=== PATIENT | male | born 1995 ===

== ENCOUNTER 2020-02-12 00:33 | Emergency (ER) | payer OTHER, SELFPAY ==
[2020-02-12] MEDS: LORazepam 2 MG/ML INJ IM (00:56)
[2020-02-12] MEDS: HALOPERIDOL 5 MG/ML VIAL IM (00:56)
[2020-02-12] MEDS: diphenhydrAMINE 50 MG/ML VIAL IM (00:56)
[2020-02-12 01:23] VITALS: BP 113/73; PULSE 79; RESP 18; O2SAT 97
--- NOTE | 2020-02-12 01:26 | PC.NURSE ---
Dr An gave the patient's necklace to his mother in the waiting room.
--- NOTE | 2020-02-12 01:30 | ED_ITS ---
HPI - Psych <Linda An DO - Last Filed: 02/15/20 07:15> General Chief Complaint: Psychiatric Symptoms Stated Complaint: brought in by law enforcement Time Seen by Provider: 02/12/20 00:36 Source: family, police and other Mode of arrival: Ambulatory History of Present Illness HPI Narrative: Patient is a 24-year-old male who presents by police for altered mental status. He is talking quite fast not making any sense not answering any questions. I have spoken with mom and dad he state this is happened at least 3 times the most recent was about 3 weeks ago. He went to [place] went to a republican, did not sleep, smoked some marijuana he was put in the hospital, then later released. He got COVID from the republican he has since had negative COVID test. Mom and dad state he was doing well in till he went to [place]. He was at [facility] for something similar as well. Every time he has had lack of sleep and marijuana. Tonight they did find some homemade at doubles in his room. They are trying to get him some help. [facility] [place].. complaint: altered mental status Related Data Allergies Allergy/AdvReac Type Severity Reaction Status Date / Time zolpidem [From Ambien] AdvReac Verified 02/12/20 02:13 Review of Systems <DO Deepika Ceballos Last Filed: 02/15/20 07:15> Review of Systems ROS Unobtainable: Unobtainable due to mental condition Patient History <Linda An DO - Last Filed: 02/15/20 07:15> Medical History Patient denies significant medical history alcohol intake frequency: 0-2 drinks per day Substance Use Type: marijuana Exam <Linda An DO - Last Filed: 02/15/20 07:15> Initial Vital Signs Initial Vital Signs: Vital Signs Pulse Rate 79 02/12/20 01:23 Respiratory Rate 18 02/12/20 01:23 Blood Pressure 113/73 02/12/20 01:23 Pulse Oximetry 97 02/12/20 01:23 Gen.: Thin young male agitated ambulatory HEENT: Head is atraumatic EOMI, lips are dry Neck: Supple no JVD Lungs: Speaking clearly, no sign of respiratory distress Cardiac: Peripheral pulses intact no cyanosis Extremities: No bony deformities Neurologic: Alert, speaking quite fast Psych Appearance: well kempt Speech and Movement: agitated, pressured speech and restless Mood: manic mood and paranoid Affect: anxious affect, hostile and irritable affect Attitude: belligerent Thought Process: flight of ideas and illogical Judgment: poor <Sanchez Johnson DO - Last Filed: 02/12/20 18:05> Initial Vital Signs Initial Vital Signs: Vital Signs Pulse Rate 79 02/12/20 01:23 Respiratory Rate 18 02/12/20 01:23 Blood Pressure 113/73 02/12/20 01:23 Pulse Oximetry 97 02/12/20 01:23 Course <Linda An DO - Last Filed: 02/15/20 07:15> Orders Ordered: Discontinued Medications Diphenhydramine HCl (Diphenhydramine 50 Mg/Ml Vial) 50 mg IM NOW ONE Stop: 02/12/20 00:37 Last Admin: 02/12/20 00:56 Dose: 50 mg Documented by: KAIMLLA Haloperidol (Haloperidol 5 Mg/Ml Vial) 5 mg IM NOW ONE Stop: 02/12/20 00:37 Last Admin: 02/12/20 00:56 Dose: 5 mg Documented by: KAMILLA Lorazepam (Lorazepam 2 Mg/Ml Inj) 2 mg IM NOW ONE Stop: 02/12/20 00:37 Last Admin: 02/12/20 00:56 Dose: 2 mg Documented by: KAMILLA Lorazepam (Lorazepam 0.5 Mg Tablet) 1 mg PO NOW ONE Stop: 02/12/20 07:33 Last Admin: 02/12/20 07:54 Dose: 1 mg Documented by: MARCELO Lorazepam (Lorazepam 0.5 Mg Tablet) 1 mg PO NOW ONE Stop: 02/12/20 16:20 Last Admin: 02/12/20 16:25 Dose: 0.5 mg Documented by: MOISES Vital Signs Vital signs: Vital Signs - 8 hr 02/12/20 12:30 Pulse Rate 102 H Blood Pressure 132/84 Pulse Oximetry 99 <DO Deepika Watkins Last Filed: 02/12/20 18:05> Orders Ordered: Discontinued Medications Diphenhydramine HCl (Diphenhydramine 50 Mg/Ml Vial) 50 mg IM NOW ONE Stop: 02/12/20 00:37 Last Admin: 02/12/20 00:56 Dose: 50 mg Documented by: KAMILLA Haloperidol (Haloperidol 5 Mg/Ml Vial) 5 mg IM NOW ONE Stop: 02/12/20 00:37 Last Admin: 02/12/20 00:56 Dose: 5 mg Documented by: KAMILLA Lorazepam (Lorazepam 2 Mg/Ml Inj) 2 mg IM NOW ONE Stop: 02/12/20 00:37 Last Admin: 02/12/20 00:56 Dose: 2 mg Documented by: KAMILLA Lorazepam (Lorazepam 0.5 Mg Tablet) 1 mg PO NOW ONE Stop: 02/12/20 07:33 Last Admin: 02/12/20 07:54 Dose: 1 mg Documented by: MARCELO Lorazepam (Lorazepam 0.5 Mg Tablet) 1 mg PO NOW ONE Stop: 02/12/20 16:20 Last Admin: 02/12/20 16:25 Dose: 0.5 mg Documented by: MOISES Vital Signs Vital signs: Vital Signs - 8 hr 02/12/20 12:30 Pulse Rate 102 H Blood Pressure 132/84 Pulse Oximetry 99 MDM - Psych <Linda An, - Last Filed: 02/15/20 07:15> Lab Data Result diagrams: 02/12/20 01:23 02/12/20 01:23 Labs: Lab Results 02/12/20 02/12/20 02/12/20 Range/Units 01:23 01:23 01:23 WBC 5.2 (4.5-11.0) X10^3/uL RBC 4.29 L (4.5-5.9) X10^6/uL Hgb 13.1 L (13.5-17.5) g/dL Hct 38.4 L (41-53) % MCV 89.4 (80-100) fL MCH 30.6 (26-34) PG MCHC 34.2 (30-36) % RDW 12.9 (11.6-14.8) % Plt Count 256 (150-400) X10^3/uL Neut % (Auto) 57.9 (50-75) % Lymph % (Auto) 32.5 (25-40) % [place] % (Auto) 6.3 (3-14) % Eos % (Auto) 2.2 (2-4) % Baso % (Auto) 1.1 (0-2) % Neut # (Auto) 3000 (9983-1296) /uL Lymph # (Auto) 1700 (2471-0559) /uL [place] # (Auto) 300 (0-900) /uL Eos # (Auto) 100 (0-450) /uL Baso # (Auto) 100 (0-100) /uL Sodium 139 (137-145) mmol/L Potassium 3.4 (3.4-5.1) mmol/L Chloride 107 (98-107) mmol/L Carbon Dioxide 26 (22-32) mmol/L BUN 20 (9-20) mg/dL Creatinine 0.75 (0.66-1.25) mg/dL Estimated GFR > 60.0 (>60) mL/min BUN/Creatinine Ratio 26.7 H (6-22) Glucose 103 H (70-100) mg/dL Calcium 9.0 (8.4-10.2) mg/dL Total Bilirubin 0.5 (0.2-1.3) mg/dL AST 63 H (17-59) IU/L ALT 61 H (<50) IU/L Alkaline Phosphatase 53 (38-126) U/L Total Protein 7.2 (6.3-8.2) g/dL Albumin 4.2 (3.5-5.0) g/dL Globulin 3.0 (1.7-4.1) g/dL Albumin/Globulin Ratio 1.4 (1.0-2.8) TSH 1.03 (0.47-4.68) uIU/mL Urine Color Urine Appearance Urine pH (4.5-8.0) Ur Specific [place] (1.000-1.035) Urine Protein (Negative) Urine Glucose (UA) (Negative) g/dL Urine Ketones (NEGATIVE) Urine Occult Blood (Negative) Urine Nitrate (Negative) Urine Bilirubin (NEGATIVE) Urine Urobilinogen (0.2) E.U./dL Ur Leukocyte Esterase (NEGATIVE) Urine RBC (0-5/HPF) Urine WBC (0-5/HPF) Urine Bacteria (None) Ur Culture Indicated? Micro UA Comment U Opiates 300ng/mL cut (Negative) Ur Oxycodone Screen (Negative) Urine Methadone Screen (Negative) Ur Barbiturates Screen (Negative) U Tricyclic Antidepress (Negative) Ur Phencyclidine Scrn (Negative) Ur Amphetamines Screen (Negative) U Methamphetamines Scrn (Negative) Ur MDMA Scrn (Ecstasy) (Negative) U Benzodiazepines Scrn (Negative) Urine Cocaine Screen (Negative) U Marijuana (THC) Screen (Negative) Ethyl Alcohol < 10 ( - 10) mg/dL COVID-19 PCR (Negative) 02/12/20 02/12/20 02/12/20 Range/Units 02:10 07:41 07:41 WBC (4.5-11.0) X10^3/uL RBC (4.5-5.9) X10^6/uL Hgb (13.5-17.5) g/dL Hct (41-53) % MCV (80-100) fL MCH (26-34) PG MCHC (30-36) % RDW (11.6-14.8) % Plt Count (150-400) X10^3/uL Neut % (Auto) (50-75) % Lymph % (Auto) (25-40) % [place] % (Auto) (3-14) % Eos % (Auto) (2-4) % Baso % (Auto) (0-2) % Neut # (Auto) (7185-2782) /uL Lymph # (Auto) (8697-7827) /uL [place] # (Auto) (0-900) /uL Eos # (Auto) (0-450) /uL Baso # (Auto) (0-100) /uL Sodium (137-145) mmol/L Potassium (3.4-5.1) mmol/L Chloride (98-107) mmol/L Carbon Dioxide (22-32) mmol/L BUN (9-20) mg/dL Creatinine (0.66-1.25) mg/dL Estimated GFR (>60) mL/min BUN/Creatinine Ratio (6-22) Glucose (70-100) mg/dL Calcium (8.4-10.2) mg/dL Total Bilirubin (0.2-1.3) mg/dL AST (17-59) IU/L ALT (<50) IU/L Alkaline Phosphatase (38-126) U/L Total Protein (6.3-8.2) g/dL Albumin (3.5-5.0) g/dL Globulin (1.7-4.1) g/dL Albumin/Globulin Ratio (1.0-2.8) TSH (0.47-4.68) uIU/mL Urine Color Yellow Urine Appearance Clear Urine pH 5.5 (4.5-8.0) Ur Specific [place] 1.025 (1.000-1.035) Urine Protein Negative (Negative) Urine Glucose (UA) Negative (Negative) g/dL Urine Ketones Negative (NEGATIVE) Urine Occult Blood Negative (Negative) Urine Nitrate Negative (Negative) Urine Bilirubin Negative (NEGATIVE) Urine Urobilinogen 0.2 (0.2) E.U./dL Ur Leukocyte Esterase Negative (NEGATIVE) Urine RBC None seen (0-5/HPF) Urine WBC None seen (0-5/HPF) Urine Bacteria None seen (None) Ur Culture Indicated? Cult not indicated Micro UA Comment Microscopic normal U Opiates 300ng/mL cut Negative (Negative) Ur Oxycodone Screen Negative (Negative) Urine Methadone Screen Negative (Negative) Ur Barbiturates Screen Negative (Negative) U Tricyclic Antidepress Negative (Negative) Ur Phencyclidine Scrn Negative (Negative) Ur Amphetamines Screen Negative (Negative) U Methamphetamines Scrn Negative (Negative) Ur MDMA Scrn (Ecstasy) Negative (Negative) U Benzodiazepines Scrn Negative (Negative) Urine Cocaine Screen Negative (Negative) U Marijuana (THC) Screen Positive H (Negative) Ethyl Alcohol ( - 10) mg/dL COVID-19 PCR Negative (Negative) Point of Care Testing Glucose POC 103 <Sanchez Johnson, DO - Last Filed: 02/12/20 18:05> Lab Data Attestation: I reviewed the patient's lab results. Labs: Lab Results 02/12/20 02/12/20 02/12/20 Range/Units 01:23 01:23 01:23 WBC 5.2 (4.5-11.0) X10^3/uL RBC 4.29 L (4.5-5.9) X10^6/uL Hgb 13.1 L (13.5-17.5) g/dL Hct 38.4 L (41-53) % MCV 89.4 (80-100) fL MCH 30.6 (26-34) PG MCHC 34.2 (30-36) % RDW 12.9 (11.6-14.8) % Plt Count 256 (150-400) X10^3/uL Neut % (Auto) 57.9 (50-75) % Lymph % (Auto) 32.5 (25-40) % [place] % (Auto) 6.3 (3-14) % Eos % (Auto) 2.2 (2-4) % Baso % (Auto) 1.1 (0-2) % Neut # (Auto) 3000 (8897-9147) /uL Lymph # (Auto) 1700 (2668-2517) /uL [place] # (Auto) 300 (0-900) /uL Eos # (Auto) 100 (0-450) /uL Baso # (Auto) 100 (0-100) /uL Sodium 139 (137-145) mmol/L Potassium 3.4 (3.4-5.1) mmol/L Chloride 107 (98-107) mmol/L Carbon Dioxide 26 (22-32) mmol/L BUN 20 (9-20) mg/dL Creatinine 0.75 (0.66-1.25) mg/dL Estimated GFR > 60.0 (>60) mL/min BUN/Creatinine Ratio 26.7 H (6-22) Glucose 103 H (70-100) mg/dL Calcium 9.0 (8.4-10.2) mg/dL Total Bilirubin 0.5 (0.2-1.3) mg/dL AST 63 H (17-59) IU/L ALT 61 H (<50) IU/L Alkaline Phosphatase 53 (38-126) U/L Total Protein 7.2 (6.3-8.2) g/dL Albumin 4.2 (3.5-5.0) g/dL Globulin 3.0 (1.7-4.1) g/dL Albumin/Globulin Ratio 1.4 (1.0-2.8) TSH 1.03 (0.47-4.68) uIU/mL Urine Color Urine Appearance Urine pH (4.5-8.0) Ur Specific [place] (1.000-1.035) Urine Protein (Negative) Urine Glucose (UA) (Negative) g/dL Urine Ketones (NEGATIVE) Urine Occult Blood (Negative) Urine Nitrate (Negative) Urine Bilirubin (NEGATIVE) Urine Urobilinogen (0.2) E.U./dL Ur Leukocyte Esterase (NEGATIVE) Urine RBC (0-5/HPF) Urine WBC (0-5/HPF) Urine Bacteria (None) Ur Culture Indicated? Micro UA Comment U Opiates 300ng/mL cut (Negative) Ur Oxycodone Screen (Negative) Urine Methadone Screen (Negative) Ur Barbiturates Screen (Negative) U Tricyclic Antidepress (Negative) Ur Phencyclidine Scrn (Negative) Ur Amphetamines Screen (Negative) U Methamphetamines Scrn (Negative) Ur MDMA Scrn (Ecstasy) (Negative) U Benzodiazepines Scrn (Negative) Urine Cocaine Screen (Negative) U Marijuana (THC) Screen (Negative) Ethyl Alcohol < 10 ( - 10) mg/dL COVID-19 PCR (Negative) 02/12/20 02/12/20 02/12/20 Range/Units 02:10 07:41 07:41 WBC (4.5-11.0) X10^3/uL RBC (4.5-5.9) X10^6/uL Hgb (13.5-17.5) g/dL Hct (41-53) % MCV (80-100) fL MCH (26-34) PG MCHC (30-36) % RDW (11.6-14.8) % Plt Count (150-400) X10^3/uL Neut % (Auto) (50-75) % Lymph % (Auto) (25-40) % [place] % (Auto) (3-14) % Eos % (Auto) (2-4) % Baso % (Auto) (0-2) % Neut # (Auto) (7650-5513) /uL Lymph # (Auto) (3430-9583) /uL [place] # (Auto) (0-900) /uL Eos # (Auto) (0-450) /uL Baso # (Auto) (0-100) /uL Sodium (137-145) mmol/L Potassium (3.4-5.1) mmol/L Chloride (98-107) mmol/L Carbon Dioxide (22-32) mmol/L BUN (9-20) mg/dL Creatinine (0.66-1.25) mg/dL Estimated GFR (>60) mL/min BUN/Creatinine Ratio (6-22) Glucose (70-100) mg/dL Calcium (8.4-10.2) mg/dL Total Bilirubin (0.2-1.3) mg/dL AST (17-59) IU/L ALT (<50) IU/L Alkaline Phosphatase (38-126) U/L Total Protein (6.3-8.2) g/dL Albumin (3.5-5.0) g/dL Globulin (1.7-4.1) g/dL Albumin/Globulin Ratio (1.0-2.8) TSH (0.47-4.68) uIU/mL Urine Color Yellow Urine Appearance Clear Urine pH 5.5 (4.5-8.0) Ur Specific [place] 1.025 (1.000-1.035) Urine Protein Negative (Negative) Urine Glucose (UA) Negative (Negative) g/dL Urine Ketones Negative (NEGATIVE) Urine Occult Blood Negative (Negative) Urine Nitrate Negative (Negative) Urine Bilirubin Negative (NEGATIVE) Urine Urobilinogen 0.2 (0.2) E.U./dL Ur Leukocyte Esterase Negative (NEGATIVE) Urine RBC None seen (0-5/HPF) Urine WBC None seen (0-5/HPF) Urine Bacteria None seen (None) Ur Culture Indicated? Cult not indicated Micro UA Comment Microscopic normal U Opiates 300ng/mL cut Negative (Negative) Ur Oxycodone Screen Negative (Negative) Urine Methadone Screen Negative (Negative) Ur Barbiturates Screen Negative (Negative) U Tricyclic Antidepress Negative (Negative) Ur Phencyclidine Scrn Negative (Negative) Ur Amphetamines Screen Negative (Negative) U Methamphetamines Scrn Negative (Negative) Ur MDMA Scrn (Ecstasy) Negative (Negative) U Benzodiazepines Scrn Negative (Negative) Urine Cocaine Screen Negative (Negative) U Marijuana (THC) Screen Positive H (Negative) Ethyl Alcohol ( - 10) mg/dL COVID-19 PCR Negative (Negative) Point of Care Testing Glucose POC 103 MDM Narrative Medical decision making narrative: Dr johnson: Received turned over from night provider. Reviewed patient's history and physical. Patient has been calm throughout most of the day however has had episodes where he becomes agitated however oral Ativan seems to improve his symptoms. He was evaluated by social Work. He was voluntary for admission to psychiatric facility. The receiving facility in provider was set up through social work. Will transport patient. He is stable for transport. Restraint Jcvg-zh-Rveq <Linda An, DO - Last Filed: 02/15/20 07:15> Restraint Wqxu-tb-Bhdi Evaluation Bnsz-ar-Sshj #1: Date: 02/12/20 Patient Appearance: Unkempt Level of Consciousness: Alert, Combative, Inappropriate and Restless Speech Pattern: Excessive, Rambling and Word Salad Mood Description: Anxious and Hostile Ability to Follow Directions: Poor Thought Process: Flight of ideas Respirations: Normal respiratory rate Circulation: Moves all extremities, peripheral pulses palpable and Skin warm and dry Behavior necessitating restraint: Escalating verbal abuse Restraint risks explained to patient: Yes Restraint risks explained to family: Yes (mom and dad in waiting room, I went out and explained the situation) Reaction to Intervention: Restless, Indicating Needs Restraint Needs: Continue Restraints Snbj-gw-Maqs #2: Date: 02/12/20 Time: 01:44 Patient Appearance: Unkempt Level of Consciousness: Alert and Appropriate Restraint Needs: Discontinue Restraints (Discontinue 2 restraints) Vtov-ck-Fzql #3: Date: 02/12/20 Time: 02:00 Patient Appearance: Unkempt Level of Consciousness: Drowsy Restraint Needs: Discontinue Restraints Discharge Plan Departure Patient Disposition: Xfer Psychiatric Hosp Clinical Impression: Acute psychosis
[2020-02-12 01:42] LABS: Add Manual Diff / Slide Review NO; Basophils Absolute Auto 100 /uL (0-100); Basophils Percent Auto 1.1 % (0-2); Eosinophils Absolute Auto 100 /uL (0-450); Eosinophils Percent Auto 2.2 % (2-4); Hematocrit 38.4 % (41-53); Hemoglobin 13.1 g/dL (13.5-17.5); Lymphocytes Absolute Auto 1700 /uL (1100-4500); Lymphocytes Percent Auto 32.5 % (25-40); Mean Corpuscular HGB Conc 34.2 % (30-36); Mean Corpuscular Hemoglobin 30.6 PG (26-34); Mean Corpuscular Volume 89.4 fL (80-100); Monocytes Absolute Auto 300 /uL (0-900); Monocytes Percent Auto 6.3 % (3-14); Neutrophils Absolute Auto 3000 /uL (1500-7000); Neutrophils Percent Auto 57.9 % (50-75); Platelet Count 256 X10^3/uL (150-400); Red Blood Cell Count 4.29 X10^6/uL (4.5-5.9); Red Cell Distribution Width 12.9 % (11.6-14.8); White Blood Cell Count 5.2 X10^3/uL (4.5-11.0)
[2020-02-12 01:49] LABS: Alanine Aminotransferase 61 IU/L (<50); Albumin 4.2 g/dL (3.5-5.0); Albumin Globulin Ratio 1.4 (1.0-2.8); Alkaline Phosphatase 53 U/L (38-126); Aspartate Aminotransferase 63 IU/L (17-59); BUN Creatinine Ratio 26.7 (6-22); Bilirubin Total 0.5 mg/dL (0.2-1.3); Blood Urea Nitrogen 20 mg/dL (9-20); Carbon Dioxide 26 mmol/L (22-32); Chloride 107 mmol/L (98-107); Estimated Glomerular Filt Rate > 60.0 mL/min (>60); Ethanol (ETOH) < 10 mg/dL; Glucose 103 mg/dL (70-100); HEMOLYSIS < 15 (0-50); Potassium 3.4 mmol/L (3.4-5.1); Sodium 139 mmol/L (137-145); Total Protein 7.2 g/dL (6.3-8.2)
[2020-02-12 02:26] LABS: Thyroid Stimulating Hormone 1.03 uIU/mL (0.47-4.68)
--- NOTE | 2020-02-12 02:27 | PC.NURSE ---
Armaan, Father [phone]
[2020-02-12 02:35] LABS: COVID19 -Nasal RAPID Negative (Negative)
[2020-02-12 06:06] VITALS: BP 118/82; PULSE 57; RESP 18
--- NOTE | 2020-02-12 07:46 | PC.NURSE ---
Pt standing in room yelling at father stating How about you be a father for once in your god d*mn life, do you want me to go to f*cking hell?
[2020-02-12] MEDS: LORazepam 0.5 MG TABLET 1 MG PO ×2 (07:54→16:25)
[2020-02-12 07:59] LABS: Bacteria Urine None Seen; RBC Urine None Seen (0-5/HPF); WBC Urine None Seen (0-5/HPF)
[2020-02-12 08:02] LABS: Appearance Urine UA CLEAR; Bilirubin Urine UA NEGATIVE (NEGATIVE); Color Urine UA YELLOW; Glucose Urine UA NEGATIVE (Negative); Ketones Urine UA NEGATIVE (NEGATIVE); Leukocyte Esterase Urine UA NEGATIVE (NEGATIVE); Nitrite Urine UA NEGATIVE (Negative); Occult Blood Urine UA NEGATIVE (Negative); Protein Urine UA NEGATIVE (Negative); Specific Gravity Urine UA 1.025 (1.000-1.035); Urobilinogen Urine UA 0.2 E.U./dL (0.2); pH Urine UA 5.5 (4.5-8.0)
--- NOTE | 2020-02-12 08:03 | PC.NURSE ---
pt up walking in room and talking with dad.
--- NOTE | 2020-02-12 08:04 | PC.NURSE ---
pt spit out ativan, pt then asked for more, pt dad picked up the tabs. and through them away. i did get the pt more medication and he did take them. pt is saying if anyone tries to take my stuff again, I'll throw hands pt ripped off dads mask, walked up on dad and put his chest on his chest saying what are you going to do then says you don't love me, you're giving up on me like mom
[2020-02-12 08:08] LABS: Culture Indicated Urine Cult Not Indicated; UR Morphine/Opiate cutoff 300 Negative (Negative); Ur Creatinine Normal (Normal); Ur Specific Gravity Normal (Normal); Urine Amphetamines Negative (Negative); Urine Barbiturates Negative (Negative); Urine Benzodiazepines Negative (Negative); Urine Cocaine Negative (Negative); Urine Comments Microscopic Normal; Urine MDMA Negative (Negative); Urine Methadone Negative (Negative); Urine Methamphetamines Negative (Negative); Urine Oxycodone Negative (Negative); Urine Phencyclidine Negative (Negative); Urine Tetrahydrocannabinol Positive (Negative); Urine Tricyclic Antidepressant Negative (Negative); Urine pH Normal (Normal)
--- NOTE | 2020-02-12 10:29 | PC.NURSE ---
dad found a broken tablet, unsure if its from the first failed dose of ativan or the second dose provided.
--- NOTE | 2020-02-12 12:07 | PC.NURSE ---
late entry 1045, pt asked about dad, i explained he was still in the waiting room, pt started to walk out of the ed, i stepped in front of him and asked him to return to his room, i explained i will step out and check on dad. pt then stepped back and slapped his chest and mumble at me. i said go back to your room. he did, the teri Conti stayed with him. dad did come back in.
--- NOTE | 2020-02-12 12:20 | PC.NURSE ---
IP PARALEGAL: Pt is in the room sitting on the bed. His mother and James MANAGER WELLNESS are in the room.
[2020-02-12 12:30] VITALS: BP 132/84; PULSE 102; O2SAT 99
--- NOTE | 2020-02-12 13:29 | CM.SWNOTE ---
PRODUCT/INDUSTRY CONSULTANT Assessment PRODUCT/INDUSTRY CONSULTANT - Internet Network Specialist Assessment PRODUCT/INDUSTRY CONSULTANT - Internet Network Specialist Assessment Start: 02/12/20 13:06 Freq: Status: Active Protocol: Document 02/12/20 13:06 JOEL (Rec: 02/12/20 13:29 JOEL [id number]) PRODUCT/INDUSTRY CONSULTANT/Internet Network Specialist Assessment Time Spent with Patient Start date 02/12/20 Visit Start Time 12:10 End date 02/12/20 Visit End Time 13:00 Total time Care Management spent on 50 patient visit-in minutes Mental Health Screening Include Onset, Duration, Intensity Presenting Problem Patient presents to ED via law enforcement previous evening following an episode in which he became angry and escalated towards his parents. Per report from patient and mother, patient has been experiencing day nightmares in which he see's demons and things I've never seen before, increased agitation, and paranoia. Precipitating Event(s) Patient had argument with parents prior to coming to ED previous evening. Patient Strengths Patient cares about those around him, and explains he is trying to not shut down while having the conversation about what brought him to ED. Current Behavioral Health Provider(s) None. Include Facility, Provider, Ph. # Psych. Hx Mental Health and Chemical Patient has experienced Dependency similar episodes in the past, but declines to provide formal diagnosis. Patient reports substantial marijuana use while living in [place] in late 2018. I was living by myself and smoking every day patient states, and continues to explain he was hospitalized in early 2019 due to this. Family Hx of Behavioral Abuse None reported. Psychiatric Hospitalizations (date(s)/ Patient was hospitalized in [place] location) /5150 (involuntarily) in early 2019. Patient was hospitalized in early January. Patient went to another ED on 02/08, and patient and family declined hospitalization at that time. Psychosocial information & Support Patient is a 24 y/o male who Systems recently moved from [place] to [facility] and is living with his parents. 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 Patient reports he has a girlfriend and reports positive relationships with parents, though he does explains some tension with his father. School/Work Patient currently works for his parents. Legal Concerns Legal Matters - Outstanding Issues None Mental Status Orientation (Person/Place/Time) Oriented x3 Stated Mood ok Affect (Congruent with Mood?) slightly agitated, labile, congruent with mood. Thought Content - Specify/Describe Patient discloses experiencing Obsessions, Delusions, Hallucinations visual hallucinations and does describe paranoia and grandiose thinking during assessment. Thought Processes (Scmckic-Vcqvjouj-Ivrn Mostly coherent. Some Hectmahc-Ufkemtrn-Vruoflteim- disorganized thinking and Kqufktqszmcwcv-Ewspmlg-Ajmzdsrbetwr- thought blocking observed Thought Blocking) during assessment. Speech (Lsvtny-Giko-Mkwahvy-Rapid-Soft- Pressured. Loud-Pressured) Motor (Dizosc-Rwhppaoom-Zyfi-Other) Excessive. Patient did change positions on bed often during assessment and at one point was pacing the room and standing behind his mother and PRODUCT/INDUSTRY CONSULTANT during conversation. Insight (Tmrd-Rldd-Aabg/Limited) Fair/Limited. Judgement (Ppte-Tsvr-Jiam/Limited) Poor/Limited. Impulse Control (Adequate-Impaired) Impaired Memory (Xzsdxcuwu-Iungzy-Jvzajz, Intact for interview, not Impaired-Intact) formally assessed. Concentration (Intact-Impaired) Slight impairment. Attention (Intact-Impaired) Slight impairment. Behavior (Appropriate-Inappropriate) Appropriate. Risk Assessment Suicidal Ideation (Plan) No Homicidal Ideation (Plan) No Comment Patient denies SI/HI. Intervention Intervention PRODUCT/INDUSTRY CONSULTANT meets with patient. Patient's mother is in room and patient provides consent for mother to be present during assessment. Patient reports a experiencing and an episode of anger previous evening with resulted in this ED visit. Patient reports that he feels as though someone else takes over when he gets angry, and he does not always agree with the actions of this person. Patient's mother reports that family attempted and was unable to de-escalate patient, resulting in call to 911. Patient's mother reports that patient was responding to internal stimuli, pacing, taking his shirt on and off every few seconds during this episode. Patient demonstrates grandiose thinking, pressured speech, and labile mood/affect throughout assessment. Patient becomes agitated while communicating with father. Patient expresses awareness that his mental health is point of conflict for his family and states that his hallucinations are terrifying to him. Patient and family explain that patient had been doing well and had no significant mental health disturbances between March 2019 and December 2019. Patient returned to [place] for a brief time in early December,, and family reports that patient has had several episodes of mental health disturbances since returning. PRODUCT/INDUSTRY CONSULTANT and family discuss next steps. PRODUCT/INDUSTRY CONSULTANT brings up inpatient treatment. PRODUCT/INDUSTRY CONSULTANT, patient, and family discuss this, and patient states That sounds good, I want to go. PRODUCT/INDUSTRY CONSULTANT explains process and patient and family agreeable. PRODUCT/INDUSTRY CONSULTANT updates Dr. Johnson, who indicates agreement with plan to find voluntary inpatient treatment. Plan RA Plan PRODUCT/INDUSTRY CONSULTANT will seek voluntary inpatient bed for patient. CHADD Murphy
--- NOTE | 2020-02-12 16:25 | PC.NURSE ---
patient did not want to take one of his 0.5mg tablets of ativan. provider notified and no new orders at this time.
--- NOTE | 2020-02-12 16:45 | PC.NURSE ---
BLOW MACHINE TENDER STARCH SPRAYING: pt in bed. Mom is in room. Pt. has been having occasional agitated outbursts of yelling. 1:[address]
--- NOTE | 2020-02-12 16:49 | CM.SWNOTE ---
PSYCHIATRIC NURSE note Following assessment, PSYCHIATRIC NURSE calls [facility] seeking placement. PSYCHIATRIC NURSE is informed by [facility] staff that they do have open beds and [facility] Staff requests clinicals. PSYCHIATRIC NURSE faxes clinicals to [facility] at 1353. PSYCHIATRIC NURSE calls [facility] at 1500 seeking update. PSYCHIATRIC NURSE is informed that they will call back shortly. PSYCHIATRIC NURSE calls back at 1600 and speaks to Jessenia who informs PSYCHIATRIC NURSE that patient has been accepted. Details of acceptance listed below: Accepted to [facility] 2W. Accepting provider SANTANA Chou. [id number] [phone]. Check in 1999. Intake contact: Jessenia. PSYCHIATRIC NURSE informs Dr. Johnson, PAUL Rodgers, and DANA Lance of acceptance. [facility] to arrange transport. PSYCHIATRIC NURSE enters room and speaks with patient. Patient becomes escalated and states he no longer wants to go and asks it's Thanksgiving. Am I supposed to be fasting?. Patient is combative during conversation, and claims he did not know that this was being arranged for tonight. Patient's mother enters room and confirms that the agreement was for patient to attend inpatient tonight. With mother present, patient calls his girlfriend, who does not answer. Patient states she didn't answer, she's not my girlfriend anymore, fine, [facility]. PSYCHIATRIC NURSE informs patient and family of timing and they verbalize agreement. Patient is balling his fists and grinding his teeth when PSYCHIATRIC NURSE exits room. PSYCHIATRIC NURSE informs Dr. Johnson of escalation. Pl: Patient to transfer to [facility] for inpatient behavioral health treatment. CHADD Murphy
--- NOTE | 2020-02-12 17:07 | PC.NURSE ---
The patient only took 0.5mg of the ativan, i went in to offer the other 0.5mg. pt states he doesn't want it. the patient mom said he thought we put it in his dinner. i assured him we did not. and showed him the mediation still in my hand. I thought I heard the patient swearing at his mother, I said I'm concerned that I heard you swearing at your mom. he said I wasn't, I don't hear myself i said well i just wanted to make sure. i then offered mom tea or soda, she declined.
--- NOTE | 2020-02-12 17:33 | PC.NURSE ---
Mother is at bedside Pt is currently calm and talking with Mother
--- NOTE | 2020-02-12 18:02 | PC.NURSE ---
Pt is disagreeable to being transported via [facility] and wants to speak with the DR regarding alternate transportation to [place]. Dr is agreeable to allowing the Mother to drive the Pt to [place] via POV
--- NOTE | 2020-02-12 18:16 | PC.NURSE ---
Rn collecting vitals for discharge
[2020-02-12 18:17] VITALS: BP 124/71; PULSE 80; RESP 16; O2SAT 99
== END 2020-02-12 18:16 ==
PROVIDERS: Emergency Medicine; Emergency Provider Emergency Medicine
DX: F23 Brief psychotic disorder (principal)
CPT/HCPCS: 36415; 80053; 80305; 80320; 81001; 82962; 84443; 85025; 87635; 93005; 93010; 96372; 99284; 99285; STOP; J1200; J1630; J2060